=== PATIENT | male | born 1955 | race Caucasian/White ===

== ENCOUNTER → 2018-01-10 | Outpatient (CLI) | payer OTHER ==
[~2018-01-10] MED LIST: ARGI500C2 PO; CAYE450C4 PEG; CINN500C2 PEG; CYAN1TAB29 PO
[2018-01-10 10:01] LABS: MEAN CORPUSCULAR HEMOGLOBIN 32.3 pg (27.5-34.5); MEAN CORPUSCULAR HGB CONC 34.5 g/dL (33.2-36.2); MEAN CORPUSCULAR VOLUME 93.4 fL (81-97); MEAN PLATELET VOLUME 8.4 fL (7.4-10.4); PLATELET COUNT 224 x10^3/uL (130-400); RED BLOOD COUNT 4.99 x10^6/uL (4.38-5.82); RED CELL DISTRIBUTION WIDTH 12.5 % (9.4-14.8)
[2018-01-10 10:07] LABS: ALANINE AMINOTRANSFERASE 49 U/L (12-78); ALBUMIN 4.1 g/dL (3.4-5.0); ANION GAP 8 mmol/L (5-15); CALCIUM 8.7 mg/dL (8.5-10.1); CHLORIDE 107 mmol/L (98-107); CHOLESTEROL, TOTAL 206 mg/dL (140-239); CREATININE 0.94 mg/dL (0.7-1.3)
[2018-01-10 10:17] LABS: ALKALINE PHOSPHATASE 72 U/L (45-117); BILIRUBIN,TOTAL 0.6 mg/dL (0.2-1.0); CHOL/HDL RATIO 5.7; HDL CHOL % 17 % (26-37); HDL CHOLESTEROL (DIRECT) 36 mg/dL (40-60); LDL CHOLESTEROL,CALCULATED 129 mg/dL (54-169); LDL/HDL RATIO 3.6 (0.5-3.0); TOTAL PROTEIN 7.7 g/dL (6.4-8.2); TRIGLYCERIDES 204 mg/dL (50-200); VLDL CHOLESTEROL 41 mg/dL (0-25)
== END | disposition home or self-care (01) ==
LOC: LAB 09:44
PROVIDERS: ATTEND Nurse Practitioner Family
DX: Z13.220 Encounter for screening for lipoid disorders (principal); K21.9 Gastro-esophageal reflux disease without esophagitis; R03.0 Elevated blood-pressure reading, without diagnosis of hypertension; K42.9 Umbilical hernia without obstruction or gangrene
CPT/HCPCS: 36415; 80053; 80061; 84443; 85027

== ENCOUNTER 2018-01-23 08:55 | Day surgery (SDC) | payer OTHER ==
[~2018-01-23] VITALS: Ht 179.1 cm; Wt 92.2 kg
[~2018-01-23 08:55] MED LIST changes: +BUPIVACAINE/PF 0.5% ONE; +NAPR220C2 PO; +TURM500C4 PO
[2018-01-23] MEDS ORDERED: LACTATED RINGERS 1,000 ML IV SCH ×2 (09:53→14:59)
[2018-01-23] MEDS ORDERED: GABAPENTIN 300 MG CAPSULE PO ONE (10:00)
[2018-01-23] MEDS ORDERED: OXYcodone IR 5MG TABLET PO ONE (10:00)
[2018-01-23] MEDS ORDERED: LIDOCAINE-MPF 1%, 2ML INFIL ONE (10:00)
[2018-01-23] MEDS ORDERED: ACETAMINOPHEN 500 MG TABLET PO ONE (10:00)
[2018-01-23 10:06] VITALS: BP 140/90
[2018-01-23] MEDS ORDERED: MIDAZOLAM 1 MG/ML, 2ML ONE (13:34)
[2018-01-23] MEDS ORDERED: FENTANYL PF 100 MCG/2ML ONE ×2 (13:34→15:14)
[2018-01-23] MEDS ORDERED: KETOROLAC 30 MG/1 ML ONE (14:20)
[2018-01-23] MEDS ORDERED: DEXAMETHASONE 4 MG/ML, 1ML ONE (14:20)
[2018-01-23] MEDS ORDERED: ONDANSETRON 2MG/ML, 2ML ONE (14:20)
[2018-01-23] MEDS ORDERED: PROPOFOL 10 MG/ML, 20ML ONE (14:20)
[2018-01-23] MEDS ORDERED: CEFAZOLIN 1,000 MG ONE (14:20)
[2018-01-23] MEDS ORDERED: EPINEPHRINE 1 MG/ML, 1ML INFIL ONE (14:37)
[2018-01-23] MEDS ORDERED: morphine SULFATE 10 MG/ML, 1ML IV PRN (15:00)
[2018-01-23] MEDS ORDERED: METOCLOPRAMIDE 5 MG/ML, 2ML IV PRN (15:00)
[2018-01-23] MEDS ORDERED: OXYcodone 5 MG/5 ML ORAL.SOL UDC PO PRN (15:00)
[2018-01-23] MEDS ORDERED: PROMETHAZINE 25 MG/ML, 1ML IV PRN (15:00)
[2018-01-23] MEDS ORDERED: ALBUTEROL/IPRATROPIUM 2.5MG/0.5MG, 3 ML NPPB PRN (15:00)
[2018-01-23] MEDS ORDERED: ONDANSETRON 2MG/ML, 2ML IVPush PRN ×2 (15:00)
[2018-01-23] MEDS ORDERED: MIDAZOLAM 1 MG/ML, 2ML IV PRN (15:00)
[2018-01-23] MEDS ORDERED: MEPERIDINE/PF 25MG/0.5ML IVPush PRN (15:00)
[2018-01-23] MEDS ORDERED: HYDROcodone/APAP 5/325 TABLET PO PRN (15:00)
[2018-01-23] MEDS ORDERED: morphine SULFATE 10 MG/ML, 1ML IVPush PRN (15:00)
[2018-01-23] MEDS ORDERED: LORazepam 2 MG/ML, 1ML IVPush PRN (15:00)
[2018-01-23] MEDS ORDERED: LABETALOL 5MG/ML, 20ML IV PRN (15:00)
[2018-01-23] MEDS ORDERED: PROMETHAZINE 12.5 MG SUPP PR PRN (15:00)
[2018-01-23] MEDS ORDERED: hydrALAzine 20 MG/ML, 1ML IV PRN (15:00)
[2018-01-23] MEDS ORDERED: ALBUTEROL SULFATE 2.5 MG/3 ML NPPB PRN (15:00)
[2018-01-23] MEDS ORDERED: OXYcodone 5 MG/5 ML ORAL.SOL UDC ONE (15:14)
[2018-01-23] MEDS: FENTANYL PF 100 MCG/2ML IV PRN ×2 (15:19→15:26)
== END 2018-01-23 17:28 ==
LOC: OUT 08:55
PROVIDERS: ATTEND Thoracic Surgery (Cardiothoracic Vascular Surgery)
DX: K42.9 Umbilical hernia without obstruction or gangrene (principal); G47.33 Obstructive sleep apnea (adult) (pediatric); Z98.890 Other specified postprocedural states; Z98.52 Vasectomy status; Z72.89 Other problems related to lifestyle
CPT/HCPCS: 49585; 93005; C1781; J0171; J0690; J1100; J1885; J2250; J2405; J2704; J3010; J3490

== ENCOUNTER 2019-11-03 10:02 | Outpatient (CLI) | payer OTHER ==
[~2019-11-03 10:02] MED LIST changes: -BUPIVACAINE/PF 0.5% ONE
[2019-11-03 11:35] LABS: ANION GAP 8 mmol/L (5-15); CALCIUM 9.2 mg/dL (8.5-10.1); CHLORIDE 106 mmol/L (98-107); CREATININE 1.19 mg/dL (0.7-1.3)
[2019-11-03 11:54] LABS: BASOPHILS # (AUTO) 0.01 x10^3/uL (0-0.1); BASOPHILS % (AUTO) 0 % (0-1); EOSINOPHILS # (AUTO) 0.02 x10^3/uL (0-0.4); EOSINOPHILS % (AUTO) 0 % (1-7); LYMPHOCYTES # (AUTO) 1.54 x10^3/uL (1-3.4); LYMPHOCYTES % (AUTO) 19 % (22-44); MD NO; MEAN CORPUSCULAR HEMOGLOBIN 32.1 pg (27.5-34.5); MEAN CORPUSCULAR VOLUME 94.6 fL (81-97); MEAN PLATELET VOLUME 8.9 fL (7.4-10.4); MONOCYTES # (AUTO) 0.35 x10^3/uL (0.2-0.8); MONOCYTES % (AUTO) 4 % (2-9); NEUTROPHILS # (AUTO) 6.27 x10^3/uL (1.8-6.8); NEUTROPHILS % (AUTO) 77 % (42-75); PLATELET COUNT 204 x10^3/uL (130-400); RED BLOOD COUNT 4.77 x10^6/uL (4.38-5.82); RED CELL DISTRIBUTION WIDTH 13.3 % (9.4-14.8)
[2019-11-03] MEDS ORDERED: cinnamon PO (13:51)
[2019-11-03] MEDS ORDERED: NAPR220C2 PO (13:51)
[2019-11-03] MEDS ORDERED: CYAN100014 PO (13:51)
[2019-11-03] MEDS ORDERED: MILK175C5 PO (13:51)
[2019-11-03] MEDS ORDERED: MULTIVITAMIN PO (13:51)
[2019-11-03] MEDS ORDERED: [UNRECOGNIZED DRUG - OTHER] PO (13:51)
[2019-11-03] MEDS ORDERED: FAMO-79 PO (13:51)
[2019-11-03] MEDS ORDERED: OMEG-14 PO (13:51)
[2019-11-03] MEDS ORDERED: [UNRECOGNIZED DRUG - OTHER] PO (13:51)
[2019-11-03] MEDS ORDERED: SAW1CAPS6 PO (13:51)
== END 2019-11-03 23:59 | disposition home or self-care (01) ==
LOC: STAR 10:02
PROVIDERS: ATTEND Orthopaedic Surgery
DX: Z01.818 Encounter for other preprocedural examination (principal); M17.12 Unilateral primary osteoarthritis, left knee
CPT/HCPCS: 36415; 80048; 85025; 87081; 87147; 93005

== ENCOUNTER 2019-11-17 06:53 | Observation (INO) | payer OTHER ==
[~2019-11-17] VITALS: Ht 177.8 cm; Wt 91.6 kg
[~2019-11-17 06:53] MED LIST changes: +CYAN100014 PO; +EPINEPHRINE 1 MG/ML, 1ML ONE; +FAMO-79 PO; +KETOROLAC 60 MG/2 ML ONE; +MILK175C5 PO; +MULTIVITAMIN PO; +OMEG-14 PO; +ROPIvacaine/PF 0.2%, 20 ML ONE; +SAW1CAPS6 PO; +SODIUM CHLORIDE 0.9% 50 ML ONE; +TRANEXAMIC ACID 100 MG/ML, 10ML ONE; +[UNRECOGNIZED DRUG - OTHER] PO; +[UNRECOGNIZED DRUG - OTHER] PO; +cinnamon PO
[2019-11-17] MEDS ORDERED: DIAZEPAM 5 MG TABLET PO STA (07:20)
[2019-11-17] MEDS ORDERED: LACTATED RINGERS 1,000 ML IV SCH (07:20)
[2019-11-17] MEDS ORDERED: ACETAMINOPHEN 500 MG TABLET PO STA (07:20)
[2019-11-17] MEDS ORDERED: GABAPENTIN 300 MG CAPSULE PO STA (07:20)
[2019-11-17] MEDS ORDERED: TAMSULOSIN 0.4 MG CAP.ER.24H PO STA (07:20)
[2019-11-17] MEDS ORDERED: CELE200C PO (07:25)
[2019-11-17] MEDS ORDERED: MUPI22OI2 NS (07:25)
[2019-11-17] MEDS ORDERED: FENTANYL PF 100 MCG/2ML ONE (07:47)
[2019-11-17] MEDS ORDERED: MIDAZOLAM 1 MG/ML, 2ML ONE (07:47)
[2019-11-17] MEDS ORDERED: PROPOFOL 50 ML ONE (07:49)
[2019-11-17] MEDS ORDERED: TAMSULOSIN 0.4 MG CAP.ER.24H ONE (07:52)
[2019-11-17] MEDS ORDERED: GABAPENTIN 300 MG CAPSULE ONE (07:52)
[2019-11-17] MEDS ORDERED: DIAZEPAM 5 MG TABLET ONE (07:52)
[2019-11-17] MEDS ORDERED: ACETAMINOPHEN 500 MG TABLET ONE (07:52)
[2019-11-17] MEDS ORDERED: PHENYLEPHRINE 10 MG/ML ONE (08:46)
[2019-11-17] MEDS ORDERED: METOPROLOL 1 MG/ML, 5ML IV PRN (09:30)
[2019-11-17] MEDS ORDERED: HYDROmorphone 2 MG/ML, 1ML IVPush PRN (09:30)
[2019-11-17] MEDS ORDERED: MIDAZOLAM 1 MG/ML, 2ML IV PRN (09:30)
[2019-11-17] MEDS ORDERED: FENTANYL PF 100 MCG/2ML IV PRN (09:30)
[2019-11-17] MEDS ORDERED: hydrALAzine 20 MG/ML, 1ML IV PRN (09:30)
[2019-11-17] MEDS ORDERED: MEPERIDINE/PF 25MG/ML,1ML IVPush PRN (09:30)
[2019-11-17] MEDS ORDERED: PROMETHAZINE 25 MG/ML, 1ML IV PRN (09:30)
[2019-11-17] MEDS ORDERED: OXYcodone 5 MG/5 ML ORAL.SOL UDC PO PRN (09:30)
[2019-11-17] MEDS ORDERED: ALBUTEROL/IPRATROPIUM 2.5MG/0.5MG, 3 ML NPPB PRN (09:30)
[2019-11-17] MEDS ORDERED: ROPIvacaine/PF 0.2%, 100ML 550 ML (check volume) INJ ONE (09:30)
[2019-11-17] MEDS ORDERED: ONDANSETRON 2MG/ML, 2ML ONE (09:31)
[2019-11-17] MEDS ORDERED: DEXAMETHASONE 4 MG/ML, 1ML ONE (09:31)
[2019-11-17] MEDS ORDERED: CEFAZOLIN 1,000 MG ONE (09:31)
[2019-11-17] MEDS ORDERED: ACETAMINOPHEN 500 MG TABLET PO SCH (10:30)
[2019-11-17] MEDS ORDERED: SCOPOLAMINE PATCH, 1.5MG PATCH.TD72 TD SCH (10:30)
[2019-11-17] MEDS ORDERED: HYDROmorphone 1 MG/ML, 1ML INJ IVPush PRN ×2 (10:30→15:00)
[2019-11-17] MEDS ORDERED: KETOROLAC 30 MG/1 ML IV SCH (10:30)
[2019-11-17] MEDS ORDERED: TRANEXAMIC ACID 1,000 MG in SODIUM CHLORIDE 0.9% 100 ML IVPB ONE (10:45)
[2019-11-17 12:00] VITALS: BP 109/69
[2019-11-17] MEDS ORDERED: DIPHENHYDRAMINE 25 MG CAPSULE PO PRN (12:30)
[2019-11-17] MEDS ORDERED: ALUMINUM/MAG/SIMETHICONE 30 ML UDC PO PRN (12:30)
[2019-11-17] MEDS ORDERED: CALCIUM/VITAMIN D3 250-125 TABLET ONE (12:40)
[2019-11-17] MEDS ORDERED: HYDROmorphone 1 MG/ML, 1ML INJ ONE (12:46)
[2019-11-17] MEDS: ACETAMINOPHEN 500 MG TABLET PO SCH ×2 (12:51→20:27)
[2019-11-17] MEDS: CALCIUM/VITAMIN D3 250-125 TABLET PO SCH ×2 (12:52→17:10)
[2019-11-17] MEDS ORDERED: BISACODYL 10 MG SUPP PR PRN (13:00)
[2019-11-17] MEDS ORDERED: DIAZEPAM 5 MG TABLET PO PRN (13:00)
[2019-11-17] MEDS ORDERED: SENNA/DOCUSATE TABLET PO PRN (13:00)
[2019-11-17] MEDS ORDERED: MAGNESIUM HYDROXIDE 8%, 30ML UDC PO PRN (13:00)
[2019-11-17] MEDS ORDERED: PSYLLIUM PACKET PO PRN (13:00)
[2019-11-17 13:30] VITALS: BP 121/76
[2019-11-17] MEDS ORDERED: PROMETHAZINE 25 MG/ML, 1ML IM PRN (13:30)
[2019-11-17] MEDS ORDERED: PROMETHAZINE 12.5 MG SUPP PR PRN (13:30)
[2019-11-17] MEDS ORDERED: ONDANSETRON 2MG/ML, 2ML IVPush PRN (13:30)
[2019-11-17] MEDS ORDERED: HYDROcodone/APAP 10/325 MG TABLET PO PRN (13:30)
[2019-11-17] MEDS: KETOROLAC 30 MG/1 ML IV SCH ×2 (13:30→20:27)
[2019-11-17] MEDS ORDERED: ONDANSETRON 4 MG TABLET PO PRN (13:30)
[2019-11-17] MEDS: ASPIRIN 81 MG TABLET EC PO SCH (17:10)
[2019-11-17] MEDS: HYDROcodone/APAP 10/325 MG TABLET PO PRN (17:23)
[2019-11-17] MEDS: CEFAZOLIN PMX 2GM/50ML 50 ML IVPB SCH (17:23)
[2019-11-17] MEDS: FERROUS SULFATE 325 MG TABLET PO SCH (18:57)
[2019-11-17] MEDS: D5%-0.45% NACL 1,000 ML IV SCH (19:30)
[2019-11-17] MEDS: DOCUSATE 100 MG CAPSULE PO SCH (20:27)
[2019-11-17] MEDS ORDERED: ZOLPIDEM 5MG TABLET PO PRN (21:00)
[2019-11-17 21:17] VITALS: BP 122/75
[2019-11-17 23:49] VITALS: BP 122/74
[2019-11-18] MEDS: KETOROLAC 30 MG/1 ML IV SCH ×2 (02:10→07:57)
[2019-11-18] MEDS: CEFAZOLIN PMX 2GM/50ML 50 ML IVPB SCH (02:10)
[2019-11-18] MEDS: ACETAMINOPHEN 500 MG TABLET PO SCH ×2 (02:10→07:58)
[2019-11-18] MEDS: HYDROcodone/APAP 10/325 MG TABLET PO PRN (02:13)
[2019-11-18 04:13] VITALS: BP 114/72
[2019-11-18] MEDS: ASPIRIN 81 MG TABLET EC PO SCH (05:49)
[2019-11-18] MEDS ORDERED: DEXAMETHASONE 4 MG/ML, 1ML IVPush ONE (06:00)
[2019-11-18 07:20] VITALS: BP 121/74
[2019-11-18] MEDS: D5%-0.45% NACL 1,000 ML IV SCH (07:33)
[2019-11-18] MEDS: CALCIUM/VITAMIN D3 250-125 TABLET PO SCH (07:58)
[2019-11-18] MEDS: FERROUS SULFATE 325 MG TABLET PO SCH (07:58)
[2019-11-18] MEDS: DOCUSATE 100 MG CAPSULE PO SCH (07:58)
[2019-11-18] MEDS ORDERED: MULTIVITAMINS/MINERALS TABLET PO SCH (09:00)
[2019-11-18] MEDS ORDERED: FAMOTIDINE 20 MG TABLET PO SCH (09:00)
[2019-11-18] MEDS ORDERED: ASCORBIC ACID 500 MG TABLET PO SCH (09:00)
[2019-11-18 11:32] VITALS: BP 128/64
[2019-11-20] MEDS ORDERED: SCOPOLAMINE PATCH, 1.5MG PATCH.TD72 TD PRN (10:30)
== END 2019-11-18 12:03 | disposition home or self-care (01) ==
LOC: OUT 06:53 → ORIP 10:14 → 4NE 11:55 → DCLOUNGE 11-18 11:46
PROVIDERS: ADMIT Orthopaedic Surgery; ATTEND Orthopaedic Surgery
DX: M17.12 Unilateral primary osteoarthritis, left knee (principal); Z79.899 Other long term (current) drug therapy
CPT/HCPCS: 27447; 36415; 73560; 85014; 85018; 96365; 96366; 96375; 96376; 97161; 97165; C1713; C1776; G0378; J0171; J0690; J1100; J1170; J1885; J2250; J2370; J2405; J2704; J2795; J3010; J7120